=== PATIENT | female | born 1980 | race Caucasian/White ===

== ENCOUNTER 2019-03-02 15:43 | Emergency (ER) | payer SELFPAY ==
[~2019-03-02] VITALS: Ht 165.1 cm; Wt 74.0 kg
--- NOTE | 2019-03-02 15:56 | NUR ---
Pt reports left side CP radiating down left arm that started at appx 1400 while at rest +dizziness. Pt reports she's been having the same symptoms frequently for the past few months but this time it is worse. Pt denies any medical history. per triage note
--- NOTE | 2019-03-02 15:58 | NUR ---
pt was rolled in via w/c by staff [facility] rm
--- NOTE | 2019-03-02 16:05 | NUR ---
pt is j[place]ese speaking vss stable cardiac monitoring
[2019-03-02 16:16] LABS: BASOPHILS # (AUTO) 0.08 x10^3/uL (0-0.1); BASOPHILS % (AUTO) 1 % (0-1); EOSINOPHILS # (AUTO) 0.05 x10^3/uL (0-0.4); EOSINOPHILS % (AUTO) 1 % (1-7); LYMPHOCYTES # (AUTO) 1.82 x10^3/uL (1-3.4); LYMPHOCYTES % (AUTO) 24 % (22-44); MD NO; MEAN CORPUSCULAR HEMOGLOBIN 29.9 pg (27.0-34.8); MEAN CORPUSCULAR HGB CONC 33.6 g/dL (32.4-35.8); MEAN CORPUSCULAR VOLUME 89.1 fL (80-100); MEAN PLATELET VOLUME 8.1 fL (7.4-10.4); MONOCYTES # (AUTO) 0.26 x10^3/uL (0.2-0.8); MONOCYTES % (AUTO) 3 % (2-9); NEUTROPHILS # (AUTO) 5.39 x10^3/uL (1.8-6.8); NEUTROPHILS % (AUTO) 71 % (42-75); PLATELET COUNT 358 x10^3/uL (130-400); RED BLOOD COUNT 4.53 x10^6/uL (3.82-5.3); RED CELL DISTRIBUTION WIDTH 14.2 % (9.6-15.2)
[2019-03-02 16:33] LABS: ALBUMIN 3.9 g/dL (3.4-5.0); ANION GAP 6 mmol/L (5-15); CALCIUM 8.3 mg/dL (8.5-10.1); CHLORIDE 112 mmol/L (98-107); CREATININE 0.66 mg/dL (0.55-1.02)
[2019-03-02 16:37] LABS: TROPONIN I < 0.015 ng/mL (0.000-0.045)
[2019-03-02] MEDS ORDERED: KETOROLAC 30 MG/1 ML ONE (16:59)
[2019-03-02] MEDS ORDERED: KETOROLAC 30 MG/1 ML IM ONE (17:00)
[2019-03-02 17:51] VITALS: BP 125/81
--- NOTE | 2019-03-02 17:51 | NUR ---
given dc instructfion after given medication pt understood daughter translated pt up ambualted to check out
== END 2019-03-02 17:53 | disposition home or self-care (01) ==
LOC: ED 16:23
DX: R07.89 Other chest pain (principal)
CPT/HCPCS: 36415; 71045; 80048; 82040; 84484; 85025; 93005; 96372; 99284; J1885